=== PATIENT | male | born 1975 | race Caucasian/White ===

== ENCOUNTER 2016-10-29 17:31 | Inpatient (IN) | payer BC ==
--- NOTE | 2016-10-29 18:26 | DR.RASH ---
HPI - Time Seen Time seen: 18:22 - PCP Primary Care Physician: TEENA - Complaint Chief Complaint:: PT. C/O RASH AND POSSIBLE INFECTION TO BUTTOCKS AND ALSO AN AREA THAT IS RAISED AND PAINFUL TO PERNEIUM NEAR LEFT SCROTUM. Chief Complaint Doctors Comments: Patient states he had a "boil" in his rectal area and perineum for the past 3-4 days that he has been treating at home but noticed increased swelling and redness in the perium with nodule next to his scrotum getting larger the past 24 hours. He denies fever, chills, nausea, vomiting, dysuria or hematuria but states he has noticed increased pressure when he is urinating. States he is a patient of Dr. Malloy. He has not been taking any antibiotics. States he is allergic to Keflex and Biaxin. He denies diarrhea or constipation. Onset of Chief Complaint: 10/22/16 - Reviewed Nurses Notes Review: Yes - Source History Provided: Patient - Mode of Arrival Mode of Arrival: Ambulatory - Location Location: Perineum, Buttocks - Quality Quality: Red, Painful, Pustules - Context Circumstances: Spontaneous onset History of: None - Severity Pain Severity: Moderate, Severe - Associated signs and symptoms Associated signs and symptoms: denies: Fever, Myalgias, Headache, Facial swelling, Conjunctivitis, Sore throat, Mouth lesion, Abdominal pain, Leg nodules , Red streaking, Other, None PMH - PMH Past Medical History: Yes Past Medical History: Asthma, Hypertension Past Medical History Comment: SVT, HEMORRHOIDS Past Surgical History: Yes Surgical History: Other - Family History History of Family Medical Conditions: Yes Family Medical History: Diabetes Mellitus, Hypertension - Social History Does patient currently use any type of tobacco product: No Have you used tobacco products in the last 12 months: No Type of Tobacco Use: None Does any household member use tobacco: No Alcohol Use: None Do you use any recreational Drugs:: No Lives With: Spouse Lives Where: Home - infectious screening In the last 2 months have you had wt loss of >10#?: NO Have you had fever, night sweats or hemotysis?: No Have you traveled outside the country in the last 6 months?: No Isolation: Standard ROS - Review of Systems Constitutional: No Symptoms Reported. negative: See HPI, Chills, Diaphoresis, Fever, Malaise, Weakness, Irritable, Fatigue, Loss of Appetite, Other Eyes: No Symptoms Reported. negative: See HPI, Eye Pain, Blurred Vision, Tearing, Discharge, Photophobia, Diplopia, Other ENTM: No Symptoms Reported. negative: See HPI, Ear Pain, Ear Discharge, Pulling on Ears, Hearing Loss, Nose Pain, Nose Discharge, Epistaxis, Nose Congestion, Mouth Pain, Mouth Swelling, Loose Teeth, Drooling, Throat Pain, Throat Swelling, Ear Foreign Body Respiratoy: No Symptoms Reported. negative: See HPI, Productive Cough, Non- Productive Cough, Moist Cough, Dry Cough, Hacking Cough, Barking Cough, Brassy Cough, Orthopnea, Short of Breath, Stridor, Wheezing, Hemoptysis, Other Cardiovascular: No Symptoms Reported. negative: See HPI, Chest Pain, Edema, Palpitations, Syncope, Cyanosis, Skin Mottling, Other Gastrointestinal/Abdominal: No Symptoms Reported. negative: See HPI, Abdominal Pain, Constipation, Diarrhea, Nausea, Vomiting, Food Intolerance, Other Genitourinary: No Symptoms Reported, Dysuria. negative: See HPI, Discharge, Frequency, Hematuria, Pain, Bleeding, Other Neurological: No Symptoms Reported. negative: See HPI, Anxiety, Depressed, Emotional Problems, Headache, Numbness, Paresthesia, Pre-existing Deficit, Seizure, Tingling, Tremors, Weakness, Dizziness, Problems Walking, Speech Problem, Other Musculoskeletal: Pelvis (nodule inner thight 2 cm; with swelling and erythema perineum) Integumentary: Change in Color, Lesions, Wound Hematologic/Lymphatic: No Symptoms Reported. negative: See HPI, Anemia, Blood Clots, Easy Bleeding, Easy Bruising, Swollen Glands, Lymphadenopathy, Other Endocrine: No Symptoms Reported Psychiatric: No Symptoms Reported. negative: See HPI, Anxiety, Depression, Hallucinations, Excessive crying, Suicidal, Other PE - Vital Signs Vitals: Temperature 98.3 F Pulse Rate 94 Respiratory Rate 17 Blood Pressure 141/82 O2 Sat by Pulse Oximetry 98 - General Limitations: No Limitations General Appearance: Alert, In Distress (moderate) - Head Head Exam: Normal Inspection, Atraumatic, Normocephalic - Eyes Eye exam: Normal Appearance, PERRL, EOMI. negative: Scleral Icterus, Conjunctival Injection, Nystagmus, Miosis, Mydrasis, Periorbital Swelling, Periorbital Tenderness, Other - ENT ENT Exam: Normal Exam, Normal Oropharynx, Normal External Ear Exam, Mucous Membranes Moist, TM's Normal Bilaterally External Ear Exam: Normal External Inspection TM/Canal Exam: Bilateral Normal Nasal Speculum Exam: Bilateral Normal Mouth Exam: Normal Inspection Teeth Exam: Normal Inspection. negative: Dental Caries, Fractured Tooth #, Dental Tenderness #, Gingival Swelling, Other Throat Exam: Normal Inspection. negative: Tonsillar Erythema, Tonsillomegaly, Tonsillar Exudate, R Peritonsillar Mass, L Peritonsillar Mass, Muffled Voice, Other - Neck Neck Exam: Normal Inspection, Full ROM, Trachea Midline. negative: Tenderness, Meningismus, Lymphadenopathy, Thyromegaly, Other - Chest Chest Inspection: Normal Inspection, Symmetric Chest Wall Rise. negative: Tenderness, Rash, Abscess, Other - Respiratory Respiratory Exam: Normal Lung Sounds Bilat. negative: Accessory Muscle Use, Chest Wall Tenderness, Prolonged Expiratory Phase, Respiratory Distress, Stridor , Other Respiratory Exam: Bilateral Clear to Auscultation - Cardiovascular Cardiovascular Exam: Regular Rate, Normal Rhythm, Normal Heart Sounds - Abdominal Exam Abdominal Exam: Normal Inspection, Normal Bowel Sounds, Soft. negative: Distention, Tenderness, Guarding, Rebound, Rigidity, Dimnished Bowel Sounds, Hyperactive Bowel Sounds, Hypoactive Bowel Sounds, Organomegaly, Trauma, Incision, Ascites, Mass, Bruit, Pulsatile Mass, Hernia, Other Abdominal Tenderness: negative: RUQ, RLQ, LUQ, LLQ, Epigastrium, Suprapubic, Diffuse, Mild, Moderate, Severe, Other - Extremities Extremities Exam: Normal Inspection, Full ROM, Normal Capillary Refill. negative: Tenderness, Edema, Joint Swelling, Calf Tenderness, Other - Back Back Exam: Normal Inspection, Full ROM. negative: Tenderness, (R) CVA Tenderness, (L) CVA Tenderness, Muscle Spasm, Paraspinal Tenderness, Vertebral Tenderness, Rashes, (R) Sciatic Notch Tenderness, (L) Sciatic Notch Tendern, (R ) Straight Leg Raise, (L) Straight Leg Raise, Other - Neurologic Neurological Exam: Alert, Oriented X3, CN II-XII Intact, Normal Gait, Reflexes Normal - Psychiatric Psychiatric Exam: Normal Affect, Normal Mood. negative: Depressed, Agitated, Anxious, Flat Affect, Manic, Homicidal Ideation, Suicidal Ideation, Other - Skin Skin Exam: Warm, Dry, Intact, Normal Color, Erythema (swelling area perineum; pustualar inner thigh) Type of Lesion: Rash Distribution: negative: Generalized, Involves Palms/Soles, Head, Face, Neck, Thorax, Chest, Back, Abdomen, Genitals, LUE, LLE, RUE, RLE, Other Description: Erythematous, Swelling, Papular Course - Consultation Called: 20:04 Call Returned: 20:04 (Dr. Oshea to admit) - Education/Counseling Education/Counseling: Patient, Family Educated On: Treatment, Diagnosis, Needs for Follow Up ROR - Labs Reviewed Laboratory Results Reviewed?: Yes (All labs and x-ray results reviewed and discussed with patient) Result Diagrams: 10/29/16 18:53 10/29/16 18:53 Laboratory: WBC 10.6 X10^3/uL (3.6-10.0) H 10/29/16 18:53 RBC 5.04 X10^6/uL (4.7-6.0) 10/29/16 18:53 Hgb 14.5 g/dL (13.5-18.0) 10/29/16 18:53 Hct 41.1 % (42.0-54.0) L 10/29/16 18:53 MCV 81.5 fL (80.0-100.0) 10/29/16 18:53 MCH 28.9 pg (27.0-34.0) 10/29/16 18:53 MCHC 35.4 g/dL (33.0-35.0) H 10/29/16 18:53 RDW 13.3 % (11.6-16.5) 10/29/16 18:53 Plt Count 161 X10^3/uL (150.0-450.0) 10/29/16 18:53 MPV 9.6 fL (7.4-11.0) 10/29/16 18:53 Neut % 82.3 % (42.0-75.0) H 10/29/16 18:53 Lymph % 7.8 % (21.0-51.0) L 10/29/16 18:53 [place] % 7.9 % (0.0-13.0) 10/29/16 18:53 Eos % 1.7 % (0.9-2.9) 10/29/16 18:53 Baso % 0.3 % (0.2-1.0) 10/29/16 18:53 Neut # 8.7 x10^3/uL (2.2-4.8) H 10/29/16 18:53 Lymph # 0.8 X10^3/uL (1.3-2.9) L 10/29/16 18:53 [place] # 0.8 x10^3/uL (0.3-0.8) 10/29/16 18:53 Eos # 0.2 x10^3/uL (0.0-0.2) 10/29/16 18:53 Baso # 0.0 X10^3/uL (0.0-0.1) 10/29/16 18:53 Absolute Nucleated RBC 0.0 /100WBC 10/29/16 18:53 Sodium 129 mmol/L (136-145) L 10/29/16 18:53 Corrected Sodium TNP 10/29/16 18:53 Potassium 3.8 mmol/L (3.5-5.1) 10/29/16 18:53 Chloride 97 mmol/L (98-107) L 10/29/16 18:53 Carbon Dioxide 28.8 mmol/L (21-32) 10/29/16 18:53 BUN 13 mg/dL (7-18) 10/29/16 18:53 Creatinine 1.34 mg/dL (0.70-1.30) H 10/29/16 18:53 Est GFR (MDRD) Af Amer > 60 (>60) 10/29/16 18:53 Est GFR (MDRD) Non-Af > 60 (>60) 10/29/16 18:53 Glucose 107 mg/dL (65-99) H 10/29/16 18:53 Lactic Acid 1.0 mmol/L (0.4-2.0) 10/29/16 18:53 Calcium 8.9 mg/dL (8.5-10.1) 10/29/16 18:53 Corrected Calcium TNP 10/29/16 18:53 Total Bilirubin 0.90 mg/dL (0.2-1.0) 10/29/16 18:53 AST 25 Units/L (15-37) 10/29/16 18:53 ALT 43 Units/L (12-78) 10/29/16 18:53 Alkaline Phosphatase 81 Units/L (46-116) 10/29/16 18:53 Total Protein 8.1 g/dL (6.4-8.2) 10/29/16 18:53 Albumin 4.4 g/dL (3.4-5.0) 10/29/16 18:53 Globulin 3.7 g/dL (2.5-4.5) 10/29/16 18:53 Albumin/Globulin Ratio 1.2 Ratio (1.1-2.1) 10/29/16 18:53 Urine pH 8.0 (5.0 - 8.0) 10/29/16 19:15 Ur Specific [place] 1.010 (1.000-1.030) 10/29/16 19:15 Urine Protein 2+ (NEGATIVE) 10/29/16 19:15 Urine Glucose (UA) Negative (NEGATIVE) 10/29/16 19:15 Urine Ketones Negative (NEGATIVE) 10/29/16 19:15 Urine Occult Blood Negative (NEGATIVE) 10/29/16 19:15 Urine Nitrite Negative (NEGATIVE) 10/29/16 19:15 Urine Bilirubin Negative (NEGATIVE) 10/29/16 19:15 Urine Urobilinogen 1+ (NORMAL) 10/29/16 19:15 Ur Leukocyte Esterase 1+ (NEGATIVE) 10/29/16 19:15 - XRAY XRAY Interpreted by: Radiologist (CT Abdoment and pelvis: No acute process identifie within the abdomen or pelvis.) - Diagnosis Discharge Problem: Cellulitis, perineum, Folliculitis, Hyponatremia, Mild left inguinal hernia - Discharge Plan Disposition: 09 ADMITTED INPATIENT Condition: Stable - Follow ups/Referrals Follow ups/Referrals: IBETH DICKINSON [Primary Care Provider] - 3 days - Instructions
[2016-10-29] MEDS ORDERED: TORADOL 30 MG VIAL IVP ONE (18:31)
[2016-10-29] MEDS ORDERED: NS 1000 ML 1,000 ML IV SCH (19:00)
[2016-10-29] MEDS ORDERED: TORADOL 30 MG VIAL ONE (19:08)
[2016-10-29 19:25] LABS: BILIRUBIN,URINE NEGATIVE (NEGATIVE); BLOOD/HEMOGLOBIN,URINE NEGATIVE (NEGATIVE); GLUCOSE, URINE NEGATIVE (NEGATIVE); KETONES,URINE NEGATIVE (NEGATIVE); LEUKOCYTE ESTERASE ,URINE 1+ (NEGATIVE); NITRITES,URINE NEGATIVE (NEGATIVE); PROTEIN,URINE 2+ (NEGATIVE); UROBILINOGEN,URINE 1+ (NORMAL)
[2016-10-29 19:25] LABS: BASOPHILS % (AUTO) 0.3 % (0.2-1.0); EOSINOPHILS # (AUTO) 0.2 x10^3/uL (0.0-0.2); EOSINOPHILS % (AUTO) 1.7 % (0.9-2.9); HEMATOCRIT 41.1 % (42.0-54.0); HEMOGLOBIN 14.5 g/dL (13.5-18.0); LYMPHOCYTES # (AUTO) 0.8 X10^3/uL (1.3-2.9); LYMPHOCYTES % (AUTO) 7.8 % (21.0-51.0); MEAN CORPUSCULAR HEMOGLOBIN 28.9 pg (27.0-34.0); MEAN CORPUSCULAR HGB CONC 35.4 g/dL (33.0-35.0); MEAN CORPUSCULAR VOLUME 81.5 fL (80.0-100.0); MEAN PLATELET VOLUME 9.6 fL (7.4-11.0); MONOCYTES # (AUTO) 0.8 x10^3/uL (0.3-0.8); MONOCYTES % (AUTO) 7.9 % (0.0-13.0); NEUTROPHILS # (AUTO) 8.7 x10^3/uL (2.2-4.8); NEUTROPHILS % (AUTO) 82.3 % (42.0-75.0); PLATELET COUNT 161 X10^3/uL (150.0-450.0); RED BLOOD COUNT 5.04 X10^6/uL (4.7-6.0); RED CELL DISTRIBUTION WIDTH 13.3 % (11.6-16.5); WHITE BLOOD COUNT 10.6 X10^3/uL (3.6-10.0)
--- NOTE | 2016-10-29 19:25 | CT ---
CT abdomen and pelvis without contrast Indication: Pelvic and rectal cellulitis and pain Comparison: None Technique: CT images of the abdomen and pelvis were obtained without contrast. Automatic exposure co ntrol was utilized. Findings: No aggressive osseous lesion. The lung bases are clear. Within noncontrast limitations, the liver, gallbladder, spleen, stomach, duodenum, pancreas, and adr enals are unremarkable. No significant bowel thickening or dilatation of the lower GI tract is ident ified. The urinary bladder, prostate, and rectum are unremarkable. There is a fat containing left in guinal hernia. No free fluid or adenopathy identified within the abdomen or pelvis. There are some mildly prominent inguinal lymph nodes. No discrete pelvic or perineal subcutaneous co llection or soft tissue gas identified. Impression: 1. No acute process identified within the abdomen or pelvis. 2. Mildly prominent inguinal lymph nodes. Reported By:
[2016-10-29 19:28] LABS: ALANINE AMINOTRANSFERASE 43 Units/L (12-78); ALBUMIN 4.4 g/dL (3.4-5.0); ALKALINE PHOSPHATASE 81 Units/L (46-116); ASPARTATE AMINO TRANSFERASE 25 Units/L (15-37); BLOOD UREA NITROGEN 13 mg/dL (7-18); CALCIUM 8.9 mg/dL (8.5-10.1); CARBON DIOXIDE 28.8 mmol/L (21-32); CHLORIDE 97 mmol/L (98-107); CREATININE 1.34 mg/dL (0.70-1.30); GLUCOSE 107 mg/dL (65-99); SODIUM 129 mmol/L (136-145); TOTAL PROTEIN 8.1 g/dL (6.4-8.2); eGFR BLACK RACES > 60 (>60); eGFR NON BLACK RACES > 60 (>60)
[2016-10-29 20:07] LABS: COLOR,URINE YELLOW (YELLOW)
[2016-10-29 20:08] LABS: AMORPHOUS SEDIMENT,UR 1+ /HPF (NEGATIVE); APPEARANCE,URINE CLEAR (CLEAR); BACTERIA,URINE NEGATIVE /HPF (NEGATIVE); RBC,URINE NONE SEEN /HPF (NEGATIVE); SQUAMOUS EPITHELIAL CELL,UR RARE /HPF (NEGATIVE)
[2016-10-29] MEDS ORDERED: XANAX PO PRN (20:13)
[2016-10-29] MEDS ORDERED: MOTRIN TAB 600 MG PO PRN (20:13)
[2016-10-29] MEDS ORDERED: PHENERGAN TAB 25 MG PO PRN (20:13)
[2016-10-29] MEDS ORDERED: D5 1/2 NS 1000 ML 1,000 ML IV SCH (21:00)
[2016-10-29] MEDS: VANCOMYCIN 1 GM PREMIX (ADDVANTAGE) 250 ML IV SCH (21:18)
[2016-10-29] MEDS: ZOSYN VIAL 4.5 GM 4.5 GM in NS 100 ML IV + SPIKE MINIBAG* 100 ML IV SCH (22:05)
[2016-10-29] MEDS: PEPCID 20 MG IV PREMIX* 20 MG/50 ML BAG IV SCH (22:05)
[2016-10-29] MEDS: D5 1/2 NS + KCL 20 MEQ/L 1,000 ML IV SCH (22:06)
[2016-10-29 22:58] VITALS: BMI 28.1
[2016-10-30] MEDS: ZOSYN VIAL 4.5 GM 4.5 GM in NS 100 ML IV + SPIKE MINIBAG* 100 ML IV SCH ×3 (05:40→20:59)
[2016-10-30 06:08] LABS: BASOPHILS % (AUTO) 0.5 % (0.2-1.0); EOSINOPHILS # (AUTO) 0.3 x10^3/uL (0.0-0.2); HEMATOCRIT 37.3 % (42.0-54.0); HEMOGLOBIN 13.1 g/dL (13.5-18.0); LYMPHOCYTES # (AUTO) 1.3 X10^3/uL (1.3-2.9); LYMPHOCYTES % (AUTO) 15.2 % (21.0-51.0); MEAN CORPUSCULAR HGB CONC 35.1 g/dL (33.0-35.0); MEAN CORPUSCULAR VOLUME 82.4 fL (80.0-100.0); MEAN PLATELET VOLUME 9.4 fL (7.4-11.0); MONOCYTES # (AUTO) 0.7 x10^3/uL (0.3-0.8); MONOCYTES % (AUTO) 7.9 % (0.0-13.0); NEUTROPHILS # (AUTO) 6.5 x10^3/uL (2.2-4.8); NEUTROPHILS % (AUTO) 73.4 % (42.0-75.0); PLATELET COUNT 132 X10^3/uL (150.0-450.0); RED BLOOD COUNT 4.52 X10^6/uL (4.7-6.0); RED CELL DISTRIBUTION WIDTH 12.8 % (11.6-16.5); WHITE BLOOD COUNT 8.8 X10^3/uL (3.6-10.0)
[2016-10-30] MEDS: D5 1/2 NS + KCL 20 MEQ/L 1,000 ML IV SCH ×3 (06:31→22:50)
[2016-10-30 06:45] LABS: ALANINE AMINOTRANSFERASE 36 Units/L (12-78); ALBUMIN 3.6 g/dL (3.4-5.0); ALKALINE PHOSPHATASE 70 Units/L (46-116); ASPARTATE AMINO TRANSFERASE 25 Units/L (15-37); BLOOD UREA NITROGEN 14 mg/dL (7-18); CALCIUM 8.3 mg/dL (8.5-10.1); CARBON DIOXIDE 25.2 mmol/L (21-32); CHLORIDE 104 mmol/L (98-107); COR NA(FOR HYPERGLY) 140 mmol/L (136-145); CREATININE 1.15 mg/dL (0.70-1.30); GLUCOSE 139 mg/dL (65-99); SODIUM 139 mmol/L (136-145); TOTAL PROTEIN 7.1 g/dL (6.4-8.2); eGFR BLACK RACES > 60 (>60); eGFR NON BLACK RACES > 60 (>60)
[2016-10-30] MEDS: LOVENOX INJ 40 MG SYR SC SCH (08:55)
[2016-10-30] MEDS: PEPCID 20 MG IV PREMIX* 20 MG/50 ML BAG IV SCH ×2 (09:45→21:00)
[2016-10-30] MEDS: VANCOMYCIN 1 GM PREMIX (ADDVANTAGE) 250 ML IV SCH ×2 (10:12→20:56)
[2016-10-30] MEDS: COZAAR PO SCH (15:18)
[2016-10-30] MEDS: NexIUM PO SCH (15:18)
[2016-10-30] MEDS: LANOXIN PO SCH (15:59)
[2016-10-30] MEDS: DUONEB 0.5 MG/3 MG NEB SCH (17:00)
[2016-10-30] MEDS: NORCO 5/325 MG TAB PO PRN (18:08)
[2016-10-30] MEDS: PULMICORT NEB TX 0.5 MG NEB SCH (20:47)
[2016-10-30] MEDS ORDERED: MYLICON TAB 80 MG CHEW PO ONE (23:56)
[2016-10-31] MEDS: DUONEB 0.5 MG/3 MG NEB SCH ×4 (01:28→17:25)
[2016-10-31] MEDS: ZOSYN VIAL 4.5 GM 4.5 GM in NS 100 ML IV + SPIKE MINIBAG* 100 ML IV SCH ×3 (05:20→22:41)
[2016-10-31] MEDS: D5 1/2 NS + KCL 20 MEQ/L 1,000 ML IV SCH ×4 (05:31→19:16)
[2016-10-31 06:08] LABS: BASOPHILS % (AUTO) 0.5 % (0.2-1.0); EOSINOPHILS # (AUTO) 0.4 x10^3/uL (0.0-0.2); EOSINOPHILS % (AUTO) 5.3 % (0.9-2.9); HEMATOCRIT 37.9 % (42.0-54.0); HEMOGLOBIN 13.1 g/dL (13.5-18.0); LYMPHOCYTES # (AUTO) 1.2 X10^3/uL (1.3-2.9); LYMPHOCYTES % (AUTO) 15.2 % (21.0-51.0); MEAN CORPUSCULAR HEMOGLOBIN 28.9 pg (27.0-34.0); MEAN CORPUSCULAR HGB CONC 34.7 g/dL (33.0-35.0); MEAN CORPUSCULAR VOLUME 83.3 fL (80.0-100.0); MEAN PLATELET VOLUME 10.1 fL (7.4-11.0); MONOCYTES # (AUTO) 0.7 x10^3/uL (0.3-0.8); MONOCYTES % (AUTO) 8.4 % (0.0-13.0); NEUTROPHILS # (AUTO) 5.7 x10^3/uL (2.2-4.8); NEUTROPHILS % (AUTO) 70.6 % (42.0-75.0); PLATELET COUNT 119 X10^3/uL (150.0-450.0); RED BLOOD COUNT 4.55 X10^6/uL (4.7-6.0); RED CELL DISTRIBUTION WIDTH 12.9 % (11.6-16.5); WHITE BLOOD COUNT 8.1 X10^3/uL (3.6-10.0)
[2016-10-31 06:28] LABS: ALANINE AMINOTRANSFERASE 41 Units/L (12-78); ALBUMIN 3.4 g/dL (3.4-5.0); ALKALINE PHOSPHATASE 68 Units/L (46-116); ASPARTATE AMINO TRANSFERASE 22 Units/L (15-37); BLOOD UREA NITROGEN 10 mg/dL (7-18); CALCIUM 8.2 mg/dL (8.5-10.1); CARBON DIOXIDE 24.9 mmol/L (21-32); CHLORIDE 105 mmol/L (98-107); COR NA(FOR HYPERGLY) 138 mmol/L (136-145); CREATININE 0.98 mg/dL (0.70-1.30); GLUCOSE 120 mg/dL (65-99); SODIUM 138 mmol/L (136-145); TOTAL PROTEIN 6.8 g/dL (6.4-8.2); eGFR BLACK RACES > 60 (>60); eGFR NON BLACK RACES > 60 (>60)
[2016-10-31] MEDS: PULMICORT NEB TX 0.5 MG NEB SCH ×2 (08:55→20:17)
[2016-10-31] MEDS: LANOXIN PO SCH (09:06)
[2016-10-31] MEDS: COZAAR PO SCH (09:06)
[2016-10-31] MEDS: LOVENOX INJ 40 MG SYR SC SCH (09:07)
[2016-10-31] MEDS: NexIUM PO SCH (09:07)
[2016-10-31] MEDS: PEPCID 20 MG IV PREMIX* 20 MG/50 ML BAG IV SCH ×2 (09:08→21:30)
[2016-10-31 09:18] LABS: CREATININE 1.19 mg/dL (0.70-1.30); VANCOMYCIN,TROUGH 5.2 ug/mL (15-20)
[2016-10-31] MEDS: VANCOMYCIN 1 GM PREMIX (ADDVANTAGE) 250 ML IV SCH ×2 (09:21→22:39)
[2016-10-31] MEDS ORDERED: LR 1000 ML IV 1,000 ML IV ONE (09:32)
[2016-10-31] MEDS ORDERED: FENTANYL INJ 250 mcg ONE (10:18)
[2016-10-31] MEDS ORDERED: MARCAINE 0.25% WITH EPI IJ ONE (10:27)
[2016-10-31] MEDS ORDERED: XYLOCAINE 1 % (PLAIN) ONE (10:27)
[2016-10-31] MEDS ORDERED: HYDROGEN PEROXIDE 3% ONE (10:43)
[2016-10-31] MEDS ORDERED: NS IRRIGATION 1000 ML 1,000 ML IR ONE ×2 (10:50)
[2016-10-31] MEDS ORDERED: REGLAN INJ 10 MG VIAL IVP PRN (11:03)
[2016-10-31] MEDS ORDERED: BENADRYL INJ 50 MG VIAL IVP PRN (11:03)
[2016-10-31] MEDS ORDERED: ZOFRAN INJ 4 MG VIAL IVP PRN (11:03)
[2016-10-31] MEDS ORDERED: DILAUDID INJ IVP PRN (11:03)
[2016-10-31] MEDS ORDERED: PHENERGAN INJ 25 MG IVP PRN (11:03)
[2016-10-31] MEDS ORDERED: XYLOCAINE 2 % (PLAIN) ONE (13:04)
[2016-10-31] MEDS ORDERED: DIPRIVAN VIAL ONE (13:04)
[2016-10-31] MEDS ORDERED: REGLAN INJ 10 MG VIAL ONE (13:04)
[2016-10-31] MEDS ORDERED: ZOFRAN INJ 4 MG VIAL ONE (13:04)
[2016-10-31] MEDS: NORCO 5/325 MG TAB PO PRN ×2 (17:26→23:59)
[2016-10-31 21:29] LABS: CREATININE 1.2 mg/dL (0.70-1.30); VANCOMYCIN,TROUGH 6.1 ug/mL (15-20)
[2016-10-31] MEDS ORDERED: PHARMACY CONSULT - VANCOMYCIN XX SCH (23:00)
[2016-11-01] MEDS: DUONEB 0.5 MG/3 MG NEB SCH ×4 (01:06→18:38)
[2016-11-01] MEDS: D5 1/2 NS + KCL 20 MEQ/L 1,000 ML IV SCH ×3 (05:58→16:04)
[2016-11-01] MEDS: VANCOMYCIN 1 GM PREMIX (ADDVANTAGE) 250 ML IV SCH ×4 (06:01→21:48)
[2016-11-01] MEDS: ZOSYN VIAL 4.5 GM 4.5 GM in NS 100 ML IV + SPIKE MINIBAG* 100 ML IV SCH ×3 (06:08→21:49)
[2016-11-01 06:14] LABS: ALANINE AMINOTRANSFERASE 47 Units/L (12-78); ALBUMIN 3.2 g/dL (3.4-5.0); ALKALINE PHOSPHATASE 54 Units/L (46-116); ASPARTATE AMINO TRANSFERASE 27 Units/L (15-37); BLOOD UREA NITROGEN 8 mg/dL (7-18); CALCIUM 8.4 mg/dL (8.5-10.1); CARBON DIOXIDE 26.6 mmol/L (21-32); CHLORIDE 105 mmol/L (98-107); COR NA(FOR HYPERGLY) 138 mmol/L (136-145); CREATININE 1.07 mg/dL (0.70-1.30); GLUCOSE 113 mg/dL (65-99); SODIUM 138 mmol/L (136-145); TOTAL PROTEIN 6.7 g/dL (6.4-8.2); eGFR BLACK RACES > 60 (>60); eGFR NON BLACK RACES > 60 (>60)
[2016-11-01 06:20] LABS: BASOPHILS % (AUTO) 0.5 % (0.2-1.0); EOSINOPHILS # (AUTO) 0.4 x10^3/uL (0.0-0.2); EOSINOPHILS % (AUTO) 5.4 % (0.9-2.9); HEMATOCRIT 36.3 % (42.0-54.0); HEMOGLOBIN 12.7 g/dL (13.5-18.0); LYMPHOCYTES # (AUTO) 1.4 X10^3/uL (1.3-2.9); LYMPHOCYTES % (AUTO) 17.5 % (21.0-51.0); MEAN CORPUSCULAR HEMOGLOBIN 28.8 pg (27.0-34.0); MEAN CORPUSCULAR HGB CONC 34.9 g/dL (33.0-35.0); MEAN CORPUSCULAR VOLUME 82.5 fL (80.0-100.0); MEAN PLATELET VOLUME 9.3 fL (7.4-11.0); MONOCYTES # (AUTO) 0.8 x10^3/uL (0.3-0.8); NEUTROPHILS # (AUTO) 5.4 x10^3/uL (2.2-4.8); NEUTROPHILS % (AUTO) 66.6 % (42.0-75.0); PLATELET COUNT 125 X10^3/uL (150.0-450.0); RED CELL DISTRIBUTION WIDTH 13.1 % (11.6-16.5); WHITE BLOOD COUNT 8.1 X10^3/uL (3.6-10.0)
[2016-11-01] MEDS: PULMICORT NEB TX 0.5 MG NEB SCH ×2 (08:40→20:31)
[2016-11-01] MEDS: LOVENOX INJ 40 MG SYR SC SCH (10:18)
[2016-11-01] MEDS: NexIUM PO SCH (10:20)
[2016-11-01] MEDS: LANOXIN PO SCH (10:20)
[2016-11-01] MEDS: PEPCID 20 MG IV PREMIX* 20 MG/50 ML BAG IV SCH ×2 (10:20→21:45)
[2016-11-01] MEDS: COZAAR PO SCH (10:22)
[2016-11-01] MEDS: NORCO 5/325 MG TAB PO PRN (14:24)
[2016-11-01] MEDS: MORPHINE SULFATE INJ 2 MG IVP PRN (18:24)
[2016-11-01] MEDS ORDERED: STERILE WATER IRRIGATION IR ONE (18:32)
[2016-11-01] MEDS ORDERED: PHARMACY COMMENT IV SCH (21:45)
[2016-11-02] MEDS: DUONEB 0.5 MG/3 MG NEB SCH ×5 (00:09→18:40)
[2016-11-02] MEDS: MORPHINE SULFATE INJ 2 MG IVP PRN ×3 (01:54→16:50)
[2016-11-02] MEDS: ZOSYN VIAL 4.5 GM 4.5 GM in NS 100 ML IV + SPIKE MINIBAG* 100 ML IV SCH (06:18)
[2016-11-02 07:05] LABS: BASOPHILS # (AUTO) 0.1 X10^3/uL (0.0-0.1); BASOPHILS % (AUTO) 1.2 % (0.2-1.0); EOSINOPHILS # (AUTO) 0.7 x10^3/uL (0.0-0.2); EOSINOPHILS % (AUTO) 10.6 % (0.9-2.9); HEMATOCRIT 39.8 % (42.0-54.0); HEMOGLOBIN 13.6 g/dL (13.5-18.0); LYMPHOCYTES # (AUTO) 1.2 X10^3/uL (1.3-2.9); LYMPHOCYTES % (AUTO) 17.6 % (21.0-51.0); MEAN CORPUSCULAR HEMOGLOBIN 28.2 pg (27.0-34.0); MEAN CORPUSCULAR HGB CONC 34.2 g/dL (33.0-35.0); MEAN CORPUSCULAR VOLUME 82.5 fL (80.0-100.0); MEAN PLATELET VOLUME 8.9 fL (7.4-11.0); MONOCYTES # (AUTO) 0.5 x10^3/uL (0.3-0.8); MONOCYTES % (AUTO) 8.2 % (0.0-13.0); NEUTROPHILS # (AUTO) 4.1 x10^3/uL (2.2-4.8); NEUTROPHILS % (AUTO) 62.4 % (42.0-75.0); PLATELET COUNT 159 X10^3/uL (150.0-450.0); RED BLOOD COUNT 4.83 X10^6/uL (4.7-6.0); WHITE BLOOD COUNT 6.6 X10^3/uL (3.6-10.0)
[2016-11-02 07:19] LABS: ALANINE AMINOTRANSFERASE 57 Units/L (12-78); ALBUMIN 3.6 g/dL (3.4-5.0); ALKALINE PHOSPHATASE 68 Units/L (46-116); ASPARTATE AMINO TRANSFERASE 28 Units/L (15-37); BLOOD UREA NITROGEN 10 mg/dL (7-18); CALCIUM 8.8 mg/dL (8.5-10.1); CARBON DIOXIDE 27.9 mmol/L (21-32); CHLORIDE 106 mmol/L (98-107); CREATININE 1.11 mg/dL (0.70-1.30); GLUCOSE 107 mg/dL (65-99); SODIUM 142 mmol/L (136-145); TOTAL PROTEIN 7.5 g/dL (6.4-8.2); eGFR BLACK RACES > 60 (>60); eGFR NON BLACK RACES > 60 (>60)
[2016-11-02 07:23] LABS: CREATININE 1.16 mg/dL (0.70-1.30); VANCOMYCIN,TROUGH 15.3 ug/mL (15-20)
[2016-11-02] MEDS: VANCOMYCIN 1 GM PREMIX (ADDVANTAGE) 250 ML IV SCH ×3 (07:36→22:06)
[2016-11-02] MEDS: NexIUM PO SCH (09:26)
[2016-11-02] MEDS: LANOXIN PO SCH (09:27)
[2016-11-02] MEDS: COZAAR PO SCH (09:27)
[2016-11-02] MEDS: PEPCID 20 MG IV PREMIX* 20 MG/50 ML BAG IV SCH ×2 (09:27→21:20)
[2016-11-02] MEDS: PULMICORT NEB TX 0.5 MG NEB SCH ×2 (09:40→20:20)
[2016-11-02] MEDS: LOVENOX INJ 40 MG SYR SC SCH (09:40)
--- NOTE | 2016-11-02 13:44 | PCM.PROG ---
Progress Note - Progress Note for Day of Date: 11/02/16 - Subjective Subjective: 41 WM S/P I &D OF PERINEAL ABSCESSES. PT CO INCREASED PAIN WITH DRESSING CHANGES, CONTINUE WOUND CARE AND IV ATBX - Past Medical Family Social History Past Med/Fam/Surg Hx: No changes since H&P Allergies: Allergies cephalexin [From Keflex] Allergy (Verified 10/29/16 17:35) clarithromycin [From Biaxin] Allergy (Verified 10/29/16 17:35) - Review of Systems ROS: No change since H&P - Vital Signs and I&O's Vital Signs: Temperature 97.7 F Pulse Rate [Right Brachial] 75 Pulse Rate 70 Respiratory Rate 20 Blood Pressure [Right Arm] 139/73 Blood Pressure 141/72 O2 Sat by Pulse Oximetry 96 Intake and Output: Intake & Output 10/31/16 11/01/16 11/02/16 11/03/16 11:59 11:59 11:59 11:59 Intake Total 2606 2240 1900 Output Total 3110 2300 3 Balance -504 -60 1897 - Physical Exam Oriented: Normal Eyes: Normal Ear: Normal Nose: Normal Throat: Normal Respiratory: Wheezes (MILD RIGHT UPPER EXP WHEEZE) Cardiovascular: Normal : Testicular Pain Auscultation: Bowel Sounds: Normal Palpation: Normal Tenderness: Normal Skin: Wound (PERIANL DRESSING INTACT WITH LOCALIZED REDNESS TO BUTTOCK AND SCROTAL REDNESS) Musculoskeletal: Normal Mood Description: Calm Speech Pattern: Clear - Laboratory and Diagnostics Result Diagrams: 11/02/16 06:50 11/02/16 06:50 Labs: 10/31/16 11:00 Buttock Gram Stain - Final 10/31/16 11:00 Buttock Wound Culture - Final Methicillin Resis Staph Aureus 10/29/16 22:25 Buttock Gram Stain - Final 10/29/16 22:25 Buttock Wound Culture - Final Methicillin Resis Staph Aureus Laboratory WBC 6.6 X10^3/uL (3.6-10.0) 11/02/16 06:50 RBC 4.83 X10^6/uL (4.7-6.0) 11/02/16 06:50 Hgb 13.6 g/dL (13.5-18.0) 11/02/16 06:50 Hct 39.8 % (42.0-54.0) L 11/02/16 06:50 MCV 82.5 fL (80.0-100.0) 11/02/16 06:50 MCH 28.2 pg (27.0-34.0) 11/02/16 06:50 MCHC 34.2 g/dL (33.0-35.0) 11/02/16 06:50 RDW 13.0 % (11.6-16.5) 11/02/16 06:50 Plt Count 159 X10^3/uL (150.0-450.0) 11/02/16 06:50 MPV 8.9 fL (7.4-11.0) 11/02/16 06:50 Neut % 62.4 % (42.0-75.0) 11/02/16 06:50 Lymph % 17.6 % (21.0-51.0) L 11/02/16 06:50 [place] % 8.2 % (0.0-13.0) 11/02/16 06:50 Eos % 10.6 % (0.9-2.9) H 11/02/16 06:50 Baso % 1.2 % (0.2-1.0) H 11/02/16 06:50 Neut # 4.1 x10^3/uL (2.2-4.8) 11/02/16 06:50 Lymph # 1.2 X10^3/uL (1.3-2.9) L 11/02/16 06:50 [place] # 0.5 x10^3/uL (0.3-0.8) 11/02/16 06:50 Eos # 0.7 x10^3/uL (0.0-0.2) H 11/02/16 06:50 Baso # 0.1 X10^3/uL (0.0-0.1) 11/02/16 06:50 Absolute Nucleated RBC 0.1 /100WBC 11/02/16 06:50 Sodium 142 mmol/L (136-145) 11/02/16 06:50 Corrected Sodium TNP 11/02/16 06:50 Potassium 4.5 mmol/L (3.5-5.1) 11/02/16 06:50 Chloride 106 mmol/L (98-107) 11/02/16 06:50 Carbon Dioxide 27.9 mmol/L (21-32) 11/02/16 06:50 BUN 10 mg/dL (7-18) 11/02/16 06:50 Creatinine 1.16 mg/dL (0.70-1.30) 11/02/16 06:50 Est GFR (MDRD) Af Amer > 60 (>60) 11/02/16 06:50 Est GFR (MDRD) Non-Af > 60 (>60) 11/02/16 06:50 Glucose 107 mg/dL (65-99) H 11/02/16 06:50 Lactic Acid 1.0 mmol/L (0.4-2.0) 10/29/16 18:53 Calcium 8.8 mg/dL (8.5-10.1) 11/02/16 06:50 Corrected Calcium TNP 11/02/16 06:50 Total Bilirubin 0.60 mg/dL (0.2-1.0) 11/02/16 06:50 AST 28 Units/L (15-37) 11/02/16 06:50 ALT 57 Units/L (12-78) 11/02/16 06:50 Alkaline Phosphatase 68 Units/L (46-116) 11/02/16 06:50 Total Protein 7.5 g/dL (6.4-8.2) 11/02/16 06:50 Albumin 3.6 g/dL (3.4-5.0) 11/02/16 06:50 Globulin 3.9 g/dL (2.5-4.5) 11/02/16 06:50 Albumin/Globulin Ratio 0.9 Ratio (1.1-2.1) L 11/02/16 06:50 Specimen Type Catherized urine 10/29/16 19:15 Urine Color Yellow (YELLOW) 10/29/16 19:15 Urine Appearance Clear (CLEAR) 10/29/16 19:15 Urine pH 8.0 (5.0 - 8.0) 10/29/16 19:15 Ur Specific [place] 1.010 (1.000-1.030) 10/29/16 19:15 Urine Protein 2+ (NEGATIVE) 10/29/16 19:15 Urine Glucose (UA) Negative (NEGATIVE) 10/29/16 19:15 Urine Ketones Negative (NEGATIVE) 10/29/16 19:15 Urine Occult Blood Negative (NEGATIVE) 10/29/16 19:15 Urine Nitrite Negative (NEGATIVE) 10/29/16 19:15 Urine Bilirubin Negative (NEGATIVE) 10/29/16 19:15 Urine Urobilinogen 1+ (NORMAL) 10/29/16 19:15 Ur Leukocyte Esterase 1+ (NEGATIVE) 10/29/16 19:15 Urine RBC None seen /HPF (NEGATIVE) 10/29/16 19:15 Urine WBC [place] /HPF (NEGATIVE) 10/29/16 19:15 Ur Squamous Epith Cells Rare /HPF (NEGATIVE) 10/29/16 19:15 Amorphous Sediment 1+ /HPF (NEGATIVE) 10/29/16 19:15 Urine Bacteria Negative /HPF (NEGATIVE) 10/29/16 19:15 Ur Culture Indicated? No/not indicated 10/29/16 19:15 Vancomycin Trough 15.3 ug/mL (15-20) 11/02/16 06:50 Digoxin 0.64 ng/mL (0.9-2) L 10/30/16 05:00 - Plan (1) Cellulitis, perineum Status: Acute Plan: SITZ BATH, IV ATBX, WOUND CARE, POST OP PLAN OF CARE (2) Folliculitis Status: Acute
[2016-11-02] MEDS: D5 1/2 NS + KCL 20 MEQ/L 1,000 ML IV SCH (15:14)
[2016-11-02] MEDS: PERCOCET TAB 5/325 MG PO PRN (16:18)
[2016-11-02] MEDS: MILK OF MAGNESIA PO SCH (21:19)
[2016-11-02] MEDS: COLACE CAP 100 MG PO SCH (21:19)
[2016-11-03] MEDS: DUONEB 0.5 MG/3 MG NEB SCH ×4 (00:25→18:51)
[2016-11-03] MEDS ORDERED: STERILE WATER IRRIGATION IR ONE (05:40)
[2016-11-03] MEDS: MORPHINE SULFATE INJ 2 MG IVP PRN ×3 (05:50→21:39)
[2016-11-03 06:02] LABS: CREATININE 1.1 mg/dL (0.70-1.30); VANCOMYCIN,TROUGH 14.6 ug/mL (15-20)
[2016-11-03] MEDS: VANCOMYCIN 1 GM PREMIX (ADDVANTAGE) 250 ML IV SCH ×3 (06:24→21:39)
[2016-11-03] MEDS: PERCOCET TAB 5/325 MG PO PRN ×2 (07:00→13:50)
[2016-11-03] MEDS: D5 1/2 NS + KCL 20 MEQ/L 1,000 ML IV SCH ×3 (07:01→23:30)
[2016-11-03] MEDS: PULMICORT NEB TX 0.5 MG NEB SCH ×2 (09:13→20:59)
[2016-11-03] MEDS: LANOXIN PO SCH (09:42)
[2016-11-03] MEDS: MILK OF MAGNESIA PO SCH ×3 (09:42→21:41)
[2016-11-03] MEDS: PEPCID 20 MG IV PREMIX* 20 MG/50 ML BAG IV SCH ×2 (09:42→21:40)
[2016-11-03] MEDS: LOVENOX INJ 40 MG SYR SC SCH (09:43)
[2016-11-03] MEDS: NexIUM PO SCH (09:56)
[2016-11-03] MEDS: COZAAR PO SCH (09:56)
--- NOTE | 2016-11-03 11:22 | PCM.PROG ---
Progress Note - Progress Note for Day of Date: 11/03/16 - Subjective Subjective: 41 WM S/P I &D OF PERINEAL ABSCESSES. PT CO INCREASED PAIN WITH DRESSING CHANGES, CONTINUE WOUND CARE AND IV ATBX. FOLLOW DR OLIVAS POST OP PLAN OF CARE - Past Medical Family Social History Past Med/Fam/Surg Hx: No changes since H&P Allergies: Allergies cephalexin [From Keflex] Allergy (Verified 10/29/16 17:35) clarithromycin [From Biaxin] Allergy (Verified 10/29/16 17:35) - Review of Systems ROS: No change since H&P - Vital Signs and I&O's Vital Signs: Temperature 97.7 F Pulse Rate [Right Brachial] 66 Pulse Rate 72 Respiratory Rate 18 Blood Pressure [Right Arm] 132/62 Blood Pressure 141/72 O2 Sat by Pulse Oximetry 98 Intake and Output: Intake & Output 10/31/16 11/01/16 11/02/16 11/03/16 11:59 11:59 11:59 11:59 Intake Total 2606 2240 1900 2330 Output Total 3110 2300 3 Balance -504 -60 1897 2330 - Physical Exam Oriented: Normal Eyes: Normal Ear: Normal Nose: Normal Throat: Normal Respiratory: Wheezes (MILD RIGHT UPPER EXP WHEEZE) Cardiovascular: Normal : Testicular Pain Auscultation: Bowel Sounds: Normal Tenderness: Normal Skin: Wound (PERIANL DRESSING INTACT WITH LOCALIZED REDNESS TO BUTTOCK AND SCROTAL REDNESS) Musculoskeletal: Normal Mood Description: Calm Speech Pattern: Clear - Laboratory and Diagnostics Result Diagrams: 11/02/16 06:50 11/03/16 05:30 Labs: 10/31/16 11:00 Buttock Gram Stain - Final 10/31/16 11:00 Buttock Wound Culture - Final Methicillin Resis Staph Aureus 10/29/16 22:25 Buttock Gram Stain - Final 10/29/16 22:25 Buttock Wound Culture - Final Methicillin Resis Staph Aureus Laboratory WBC 6.6 X10^3/uL (3.6-10.0) 11/02/16 06:50 RBC 4.83 X10^6/uL (4.7-6.0) 11/02/16 06:50 Hgb 13.6 g/dL (13.5-18.0) 11/02/16 06:50 Hct 39.8 % (42.0-54.0) L 11/02/16 06:50 MCV 82.5 fL (80.0-100.0) 11/02/16 06:50 MCH 28.2 pg (27.0-34.0) 11/02/16 06:50 MCHC 34.2 g/dL (33.0-35.0) 11/02/16 06:50 RDW 13.0 % (11.6-16.5) 11/02/16 06:50 Plt Count 159 X10^3/uL (150.0-450.0) 11/02/16 06:50 MPV 8.9 fL (7.4-11.0) 11/02/16 06:50 Neut % 62.4 % (42.0-75.0) 11/02/16 06:50 Lymph % 17.6 % (21.0-51.0) L 11/02/16 06:50 [place] % 8.2 % (0.0-13.0) 11/02/16 06:50 Eos % 10.6 % (0.9-2.9) H 11/02/16 06:50 Baso % 1.2 % (0.2-1.0) H 11/02/16 06:50 Neut # 4.1 x10^3/uL (2.2-4.8) 11/02/16 06:50 Lymph # 1.2 X10^3/uL (1.3-2.9) L 11/02/16 06:50 [place] # 0.5 x10^3/uL (0.3-0.8) 11/02/16 06:50 Eos # 0.7 x10^3/uL (0.0-0.2) H 11/02/16 06:50 Baso # 0.1 X10^3/uL (0.0-0.1) 11/02/16 06:50 Absolute Nucleated RBC 0.1 /100WBC 11/02/16 06:50 Sodium 142 mmol/L (136-145) 11/02/16 06:50 Corrected Sodium TNP 11/02/16 06:50 Potassium 4.5 mmol/L (3.5-5.1) 11/02/16 06:50 Chloride 106 mmol/L (98-107) 11/02/16 06:50 Carbon Dioxide 27.9 mmol/L (21-32) 11/02/16 06:50 BUN 10 mg/dL (7-18) 11/02/16 06:50 Creatinine 1.10 mg/dL (0.70-1.30) 11/03/16 05:30 Est GFR (MDRD) Af Amer > 60 (>60) 11/02/16 06:50 Est GFR (MDRD) Non-Af > 60 (>60) 11/02/16 06:50 Glucose 107 mg/dL (65-99) H 11/02/16 06:50 Lactic Acid 1.0 mmol/L (0.4-2.0) 10/29/16 18:53 Calcium 8.8 mg/dL (8.5-10.1) 11/02/16 06:50 Corrected Calcium TNP 11/02/16 06:50 Total Bilirubin 0.60 mg/dL (0.2-1.0) 11/02/16 06:50 AST 28 Units/L (15-37) 11/02/16 06:50 ALT 57 Units/L (12-78) 11/02/16 06:50 Alkaline Phosphatase 68 Units/L (46-116) 11/02/16 06:50 Total Protein 7.5 g/dL (6.4-8.2) 11/02/16 06:50 Albumin 3.6 g/dL (3.4-5.0) 11/02/16 06:50 Globulin 3.9 g/dL (2.5-4.5) 11/02/16 06:50 Albumin/Globulin Ratio 0.9 Ratio (1.1-2.1) L 11/02/16 06:50 Specimen Type Catherized urine 10/29/16 19:15 Urine Color Yellow (YELLOW) 10/29/16 19:15 Urine Appearance Clear (CLEAR) 10/29/16 19:15 Urine pH 8.0 (5.0 - 8.0) 10/29/16 19:15 Ur Specific [place] 1.010 (1.000-1.030) 10/29/16 19:15 Urine Protein 2+ (NEGATIVE) 10/29/16 19:15 Urine Glucose (UA) Negative (NEGATIVE) 10/29/16 19:15 Urine Ketones Negative (NEGATIVE) 10/29/16 19:15 Urine Occult Blood Negative (NEGATIVE) 10/29/16 19:15 Urine Nitrite Negative (NEGATIVE) 10/29/16 19:15 Urine Bilirubin Negative (NEGATIVE) 10/29/16 19:15 Urine Urobilinogen 1+ (NORMAL) 10/29/16 19:15 Ur Leukocyte Esterase 1+ (NEGATIVE) 10/29/16 19:15 Urine RBC None seen /HPF (NEGATIVE) 10/29/16 19:15 Urine WBC [place] /HPF (NEGATIVE) 10/29/16 19:15 Ur Squamous Epith Cells Rare /HPF (NEGATIVE) 10/29/16 19:15 Amorphous Sediment 1+ /HPF (NEGATIVE) 10/29/16 19:15 Urine Bacteria Negative /HPF (NEGATIVE) 10/29/16 19:15 Ur Culture Indicated? No/not indicated 10/29/16 19:15 Vancomycin Trough 14.6 ug/mL (15-20) L 11/03/16 05:30 Digoxin 0.64 ng/mL (0.9-2) L 10/30/16 05:00 - Plan (1) Cellulitis, perineum Status: Acute Plan: SITZ BATH, IV ATBX, WOUND CARE, POST OP PLAN OF CARE (2) Folliculitis Status: Acute
[2016-11-03] MEDS: COLACE CAP 100 MG PO SCH ×2 (21:40→21:41)
[2016-11-04] MEDS: DUONEB 0.5 MG/3 MG NEB SCH ×4 (00:07→17:45)
[2016-11-04 05:24] LABS: CREATININE 0.96 mg/dL (0.70-1.30); VANCOMYCIN,TROUGH 15.5 ug/mL (15-20)
[2016-11-04] MEDS: MORPHINE SULFATE INJ 2 MG IVP PRN (05:26)
[2016-11-04 05:37] LABS: BASOPHILS % (AUTO) 0.9 % (0.2-1.0); EOSINOPHILS # (AUTO) 0.6 x10^3/uL (0.0-0.2); EOSINOPHILS % (AUTO) 11.5 % (0.9-2.9); HEMOGLOBIN 13.2 g/dL (13.5-18.0); LYMPHOCYTES % (AUTO) 18.2 % (21.0-51.0); MEAN CORPUSCULAR HEMOGLOBIN 28.6 pg (27.0-34.0); MEAN CORPUSCULAR HGB CONC 34.7 g/dL (33.0-35.0); MEAN CORPUSCULAR VOLUME 82.4 fL (80.0-100.0); MEAN PLATELET VOLUME 9.1 fL (7.4-11.0); MONOCYTES # (AUTO) 0.5 x10^3/uL (0.3-0.8); MONOCYTES % (AUTO) 9.3 % (0.0-13.0); NEUTROPHILS # (AUTO) 3.2 x10^3/uL (2.2-4.8); NEUTROPHILS % (AUTO) 60.1 % (42.0-75.0); PLATELET COUNT 164 X10^3/uL (150.0-450.0); RED BLOOD COUNT 4.61 X10^6/uL (4.7-6.0); RED CELL DISTRIBUTION WIDTH 12.7 % (11.6-16.5); WHITE BLOOD COUNT 5.3 X10^3/uL (3.6-10.0)
[2016-11-04 05:52] LABS: ALANINE AMINOTRANSFERASE 82 Units/L (12-78); ALBUMIN 3.3 g/dL (3.4-5.0); ALKALINE PHOSPHATASE 81 Units/L (46-116); ASPARTATE AMINO TRANSFERASE 44 Units/L (15-37); BLOOD UREA NITROGEN 12 mg/dL (7-18); CALCIUM 8.4 mg/dL (8.5-10.1); CARBON DIOXIDE 26.1 mmol/L (21-32); CHLORIDE 106 mmol/L (98-107); COR NA(FOR HYPERGLY) 141 mmol/L (136-145); CREATININE 1.02 mg/dL (0.70-1.30); GLUCOSE 126 mg/dL (65-99); SODIUM 140 mmol/L (136-145); TOTAL PROTEIN 6.9 g/dL (6.4-8.2); eGFR BLACK RACES > 60 (>60); eGFR NON BLACK RACES > 60 (>60)
[2016-11-04] MEDS: VANCOMYCIN 1 GM PREMIX (ADDVANTAGE) 250 ML IV SCH ×2 (06:18→15:20)
[2016-11-04] MEDS: D5 1/2 NS + KCL 20 MEQ/L 1,000 ML IV SCH ×2 (06:20→06:39)
[2016-11-04] MEDS: LOVENOX INJ 40 MG SYR SC SCH (09:35)
[2016-11-04] MEDS: MILK OF MAGNESIA PO SCH ×2 (09:35→10:13)
[2016-11-04] MEDS: PEPCID 20 MG IV PREMIX* 20 MG/50 ML BAG IV SCH (09:35)
[2016-11-04] MEDS: LANOXIN PO SCH (09:36)
[2016-11-04] MEDS: PERCOCET TAB 5/325 MG PO PRN (09:36)
[2016-11-04] MEDS: COZAAR PO SCH (09:36)
[2016-11-04] MEDS: NexIUM PO SCH (09:36)
[2016-11-04] MEDS: PULMICORT NEB TX 0.5 MG NEB SCH (10:02)
[2016-11-04 13:04] VITALS: BP 123/71
== END 2016-11-04 17:50 | disposition home or self-care (01) | DRG 603 ==
LOC: ER 17:37 → MED/SURG 20:10
PROVIDERS: ADMIT Internal Medicine; ATTEND Internal Medicine
PROC: 0W9G0ZZ Drainage of Peritoneal Cavity, Open Approach (ICD-10-PCS; 2016-10-31)
PROC: 0J990ZX Drainage of Buttock Subcutaneous Tissue and Fascia, Open Approach, Diagnostic (ICD-10-PCS; principal; 2016-10-31 10:15)
DX: L03.315 Cellulitis of perineum (principal); L02.31 Cutaneous abscess of buttock; E87.0 Hyperosmolality and hypernatremia; L73.8 Other specified follicular disorders; I10 Essential (primary) hypertension; B95.62 Methicillin resistant Staphylococcus aureus infection as the cause of diseases classified elsewhere
CPT/HCPCS: 36415; 74176; 80053; 80162; 80202; 81001; 82565; 83605; 85025; 87040; 87070; 87075; 87077; 87186; 87205; 93005; 93010; 94640; 96365; 96367; 96372; 96374; 96375; 99231; 99284; A4216; A4217; A4222; Q0169; S0020; S0028; J1650; J1885; J2001; J2270; J2405; J2543; J2765; J3010; J3370; J3490; J7120; J7620; J7626